=== PATIENT | male | born 1960 | race Caucasian/White ===

== ENCOUNTER 2021-02-12 18:52 | Inpatient (IN) | payer OTHER ==
[~2021-02-12] VITALS: Ht 190.5 cm; Wt 94.5 kg
[~2021-02-12 18:52] MED LIST: BREO ELLIPTA 11 EACH INH; ECOTRIN81 MG PO; INCRUSE ELLI62.5 MCG INH; LISINOPRIL20 MG PO; NEURONTIN 100100 MG PO; NEURONTIN 300 MG PO; OXYCONTIN10 MG PO; PRAVACHOL40 MG PO; PREDNISONE10 MG PO; ROXICODONE TAB 55 MG PO; VENTOLIN/PROVE0.5 ML INH
[2021-02-12 19:40] LABS: HEMOGLOBIN 18.6 gm/dl (14.0-17.5); RED BLOOD COUNT 5.68 M/UL (4.20-5.50); WHITE BLOOD COUNT 8.7 K/UL (4.5-11.0)
[2021-02-12 19:55] LABS: BUN/CREATININE RATIO 14 (0-10)
[2021-02-14 10:15] LABS: RED BLOOD COUNT 5.21 M/UL (4.20-5.50)
[2021-02-14 10:16] LABS: WHITE BLOOD COUNT 19.1 K/UL (4.5-11.0)
[2021-02-14 10:52] LABS: BUN/CREATININE RATIO 24 (0-10)
[2021-02-14] MEDS ORDERED: MEDROL DOSEPAK 24 MG PO (11:37)
== END 2021-02-14 13:39 | disposition home or self-care (01) | DRG 189 ==
LOC: ER1 18:52 → CDU 22:09 → PROG CARE 22:09
PROVIDERS: Internal Medicine; Internal Medicine Infectious Disease; ADMIT Internal Medicine
PROC: 5A09457 Assistance with Respiratory Ventilation, 24-96 Consecutive Hours, Continuous Positive Airway Pressure (ICD-10-PCS; principal; 2021-02-12)
DX: J96.21 Acute and chronic respiratory failure with hypoxia (principal); J44.1 Chronic obstructive pulmonary disease with (acute) exacerbation; E66.2 Morbid (severe) obesity with alveolar hypoventilation; J96.22 Acute and chronic respiratory failure with hypercapnia; E87.5 Hyperkalemia; I10 Essential (primary) hypertension; E78.5 Hyperlipidemia, unspecified; I11.9 Hypertensive heart disease without heart failure; I25.10 Atherosclerotic heart disease of native coronary artery without angina pectoris; G89.29 Other chronic pain; Z72.0 Tobacco use; Z83.3 Family history of diabetes mellitus; Z82.49 Family history of ischemic heart disease and other diseases of the circulatory system; Z68.26 Body mass index [BMI] 26.0-26.9, adult
CPT/HCPCS: 36415; 36600; 71045; 80053; 82550; 82553; 82803; 83874; 84132; 84484; 85025; 86140; 93005; 94640; 94660; 94664; 94668; 94760; 96374; 96375; 99285; C9113; J1650; J2920; J2930; J3475

== ENCOUNTER → 2021-11-21 | Outpatient (CLI) | payer OTHER ==
[~2021-11-21] MED LIST changes: +MEDROL DOSEPAK 24 MG PO
== END ==
LOC: HEART 5 11:13
DX: J44.9 Chronic obstructive pulmonary disease, unspecified (principal)
CPT/HCPCS: 94060; 94729